=== PATIENT | male | born 2000 | race Caucasian/White ===

== ENCOUNTER 2021-03-07 15:22 | Emergency (ER) | payer SELFPAY ==
[2021-03-07 15:40] VITALS: BP 141/75; PULSE 91; RESP 18; TEMP 36.8; O2SAT 99
--- NOTE | 2021-03-07 16:13 | ED.GENADULT ---
HPI - General Adult General Chief complaint: Unspecified Stated complaint: not able to sleep Time Seen by Provider: 03/07/21 16:13 Source: patient and RN notes reviewed Mode of arrival: ambulatory Limitations: no limitations History of Present Illness HPI narrative: 20-year-old male presents with complaints of trouble sleeping for the past 4 days. Guero reports working nights at [employer] and drinking coffee, off for several days now has increasing trouble sleeping over the past 72 hours. Muscle relaxer and melatonin without relief. History of Bipolar-Depression without medication and current treatment. Denies stress. Denies SI/HI, auditory or visual hallucination. Denies obstructive sleep apnea or restless leg syndrome. Denies dyspnea or chest pain. Denies abdominal pain, nausea, and vomiting. Tolerating po intake well. Remains active. The patient reports he have not been diagnosed with COVID-19. The patient reports he is not waiting for the results of a COVID-19 lab test. The patient reports he do not have fever, chills, weakness, or fatigue. The patient reports he do not have a new or worsening cough. The patient reports he do not have any rhinorrhea, congestion, loss of taste or smell, sore throat, and diarrhea. Denies recent traveling. Denies concerns for COVID-19 or exposures been home with limited outdoor exposure except for essential household needs, work, and return home. At this time, patient is not suspected of having COVID-19. Some parts of this dictation were generated by voice recognition software and may contain typographical and/or grammatical inaccuracies. Related Data Allergies Allergy/AdvReac Type Severity Reaction Status Date / Time No Known Allergies Allergy Verified 03/07/21 15:38 Review of Systems Review of Systems: Narrative: CONSTITUTIONAL: Denies fever, chills, sweats. EYES: Denies visual changes, redness, discharge. ENT: Denies rhinorrhea, congestion, sore throat, otalgia. CARDIOVASCULAR: Denies chest pain, palpitations, edema. RESPIRATORY: Denies dyspnea, wheezing, cough. GASTROINTESTINAL: Denies abdominal pain, nausea, vomiting, diarrhea. SKIN: Denies rash or itching. MUSCULOSKELETAL: Denies acute back pain, joint pain, or myalgia. NEUROLOGIC: Denies numbness or focal weakness. PSYCHIATRIC: Denies SI/HI, auditory or visual hallucination, anxiety, depression, feelings of guilt, worthlessness, or hopelessness. Complaints of trouble sleeping All other systems reviewed are negative, except as documented in HPI and below. PMFSH Past Medical History Medical History (Updated 03/08/21 @ 00:00 by Saskia Isbell) Bipolar disorder Depression Pilonidal cyst Surgical History Surgical History (Updated 03/07/21 @ 16:31 by KARSTEN Arriaza) History of removal of cyst From tailbone Family History Family History (Updated 03/07/21 @ 16:32 by KARSTEN Arriaza) Father Unknown family medical history Mother Hypertension Social History Social History (Updated 03/07/21 @ 16:32 by KARSTEN Arriaza) Smoking status: Never smoker Tobacco type: cigarettes Second hand tobacco smoke exposure: Yes (Family members) Alcohol intake: never Substance use: never Living arrangements: with family Occupation/Education: occupation Gender identity (if verbalized by the patient): Male Comments Lucien time of signature, agree with nurse past medical, surgical, social, and family history. There is relevant patient's history pertinent to the presenting complaint, no relevant family history pertinent to the presenting complaint. Exam Narrative: Exam Narrative: GENERAL: This is a well-nourished, well-developed patient, in no apparent distress. Talks in full sentences and ambulates with steady gait without dyspnea. HEAD: Normocephalic, atraumatic. EYES: PERRL. Sclera clear/white. Vision is grossly intact. THROAT: Mucous membranes moist, posterior pharynx clear. NECK: Nec
== END 2021-03-07 16:40 | disposition home or self-care (01) ==
PROVIDERS: Emergency Provider Nurse Practitioner Family
DX: G47.00 Insomnia, unspecified (principal); F32.9 Major depressive disorder, single episode, unspecified
CPT/HCPCS: 99203; G0463

== ENCOUNTER 2021-10-11 10:44 | Emergency (ER) | payer SELFPAY ==
--- NOTE | 2021-10-11 10:49 | ED.FEMALEGU ---
HPI - Female Genitourinary General Chief complaint: Urogenital-Male Stated complaint: UTI Time Seen by Provider: 10/11/21 10:49 Source: patient and RN notes reviewed History of Present Illness HPI Narrative: Patient is a 20-year-old male who presents the urgent care with complaints of a possible UTI. Patient states that for the last 3 days he has had burning with urination, irritation to the penis, and green to yellow penile discharge. Patient reports of urgency and pressure. Patient's girlfriend is at the bedside and he verbalizes consent to speak to him and assess him with girlfriend present. Patient states that they are newly sexually active. Denies of any known exposure to an STD. Patient has not taken anything [id number] for his symptoms. No other acute complaints. No acute distress noted. Patient aware of the plan of care. Some parts of this dictation were generated by voice recognition software and may contain typographical and/or grammatical inaccuracies. Related Data Home Medications Medication Instructions Recorded Confirmed No Home Medications 10/11/21 10/11/21 Allergies Allergy/AdvReac Type Severity Reaction Status Date / Time No Known Allergies Allergy Verified 10/11/21 11:10 Review of Systems Review of Systems: CONSTITUTIONAL: Denies fever, chills, or sweats. EYES: Denies visual changes, redness, or discharge. ENT: Denies rhinorrhea, congestion, sore throat, or otalgia. CARDIOVASCULAR: Denies chest pain, palpitations, or edema. RESPIRATORY: Denies cough or dyspnea. GASTROINTESTINAL: Denies abdominal pain, nausea, vomiting, or diarrhea. GENITOURINARY: Reports of dysuria and green to yellow penile drainage SKIN: Denies rash or itching. MUSCULOSKELETAL: Denies back pain, joint pain, or myalgia. NEUROLOGIC: Denies headache, numbness, or weakness. All other systems reviewed are negative, except as documented in HPI. [facility] Past Medical History Medical History (Updated 10/11/21 @ 11:36 by KARSTEN Justin) Bipolar disorder Depression Pilonidal cyst Surgical History Surgical History (Updated 03/07/21 @ 16:31 by KARSTEN Arriaza) History of removal of cyst From tailbone Family History Family History (Updated 03/07/21 @ 16:32 by KARSTEN Arriaza) Father Unknown family medical history Mother Hypertension Social History Social History (Updated 03/07/21 @ 16:32 by KARSTEN Arriaza) Smoking status: Never smoker Tobacco type: cigarettes Second hand tobacco smoke exposure: Yes (Family members) Alcohol intake: never Substance use: never Gender identity (if verbalized by the patient): Male Comments At the time of my signature, I reviewed and agree with the nursing past medical, surgical, social, and family history. There is no relevant family history pertinent to the patient complaint. Exam Narrative: GENERAL: This is a well-nourished, well-developed patient, in no apparent distress. HEAD: normocephalic, atraumatic. EYES: PERRL. Sclera clear/white. Vision is grossly intact. EARS: External ears normal NOSE: External nose normal with no obvious nasal discharge, nares without redness, no rhinorrhea. THROAT: Mucous membranes moist NECK: Neck supple CARDIOVASCULAR: Regular rate and rhythm without murmurs, gallops, or rubs. RESPIRATORY: Clear to auscultation. Breath sounds equal bilaterally. No wheezes, rales, or rhonchi. GASTROINTESTINAL: Abdomen soft, non-tender, nondistended. Bowel sounds are active. SKIN: warm, intact with no suspicious lesions or rash, good texture and turgor. NEURO: awake, alert, and oriented to person, place and time. There were no obvious focal neurologic abnormalities. EXTREMITIES: No clubbing, cyanosis, or edema. BACK: Negative CVA tenderness Course Vital Signs Vital signs: Vital Signs Temperature 97.8 F 10/11/21 10:55 Pulse Rate 98 10/11/21 10:55 Respiratory Rate 18 10/11/21 10:55 Blood Pressure 1
[2021-10-11 10:55] VITALS: BP 141/66; PULSE 98; RESP 18; TEMP 36.6; O2SAT 99
== END 2021-10-11 11:40 | disposition home or self-care (01) ==
PROVIDERS: Emergency Provider Nurse Practitioner Family
DX: R36.9 Urethral discharge, unspecified (principal)
CPT/HCPCS: 81003; 99212; G0463

== ENCOUNTER 2023-05-19 18:35 | Emergency (ER) | payer SELFPAY ==
[2023-05-19 18:51] VITALS: BP 124/75; PULSE 87; RESP 16; TEMP 36.8; O2SAT 100
--- NOTE | 2023-05-19 18:59 | ED.URI ---
HPI - URI/Sore Throat General Chief Complaint: Upper Respiratory Infection Stated Complaint: Sore Throat Source: patient and RN notes reviewed History of Present Illness HPI Narrative: 22 yo M presents to urgent care with complaints of a sore throat x 2-3 days. Pt denies any fevers, chills, ear pain, vomiting, chest pain, or SOB. PT has taken Nyquil and an OTC analgesic at home. Related Data Home Medications Medication Instructions Recorded Confirmed No Home Medications 10/11/21 05/19/23 Allergies Allergy/AdvReac Type Severity Reaction Status Date / Time No Known Allergies Allergy Verified 05/19/23 18:55 Review of Systems Review of Systems: Pertinent positives and pertinent negatives per HPI. [facility] Past Medical History Medical History (Updated 05/19/23 @ 19:02 by Irena Lord APRN) Bipolar disorder Depression Pilonidal cyst Surgical History Surgical History (Updated 05/10/22 @ 13:58 by Jason Harrison) History of removal of cyst From tailbone Family History Family History (System 05/10/22 @ 13:58 by Jason Harrison) Father Unknown family medical history Mother Hypertension Social History Social History (System 05/10/22 @ 13:58 by Jason Harrison) Smoking status: Never smoker Tobacco type: cigarettes Second hand tobacco smoke exposure: Yes (Family members) Alcohol intake: never Substance use: never Living arrangements: with family Occupation/Education: occupation Gender identity (if verbalized by the patient): Male Comments At the time of my signature, I reviewed and agree with the nursing past medical, surgical, social, and family history. There is no relevant family history pertinent to the patient complaint. Exam Narrative: GENERAL: This is a well-nourished, well-developed patient, in no apparent distress. HEAD: normocephalic, atraumatic. EYES: Sclera clear/white. Vision is grossly intact. EARS: External ears normal, auditory canals clear and without drainage, TMs normal without perforation. Hearing grossly intact. NOSE: External nose normal with no obvious nasal discharge, nares without redness, no rhinorrhea. THROAT: Mucous membranes moist, posterior pharynx erythemic NECK: Neck supple, non-tender without lymphadenopathy, masses or thyromegaly. CARDIOVASCULAR: Regular rate RESPIRATORY: No respiratory distress SKIN: warm, intact with no suspicious lesions or rash, good texture and turgor. NEURO: awake, alert, and oriented to person, place and time. There were no obvious focal neurologic abnormalities. Course Course Level of Care: Express Care Visit Vital Signs Vital signs: Vital Signs Temperature 98.2 F 05/19/23 18:51 Pulse Rate 87 05/19/23 18:51 Respiratory Rate 16 05/19/23 18:51 Blood Pressure 124/75 05/19/23 18:51 Pulse Oximetry 100 05/19/23 18:51 Oxygen Delivery Room Air 05/19/23 18:51 Temperature 98.2 F 05/19/23 18:51 Pulse Rate 87 05/19/23 18:51 Respiratory Rate 16 05/19/23 18:51 Blood Pressure 124/75 05/19/23 18:51 Pulse Oximetry 100 05/19/23 18:51 Oxygen Delivery Room Air 05/19/23 18:51 Reviewed MDM - URI/Sore Throat MDM Narrative Medical decision making narrative: Rapid strep is negative in the office; however we will send to the lab for confirmation; there is a small percentage chance that it can come back positive; if it is, we will call you in 2-3days; and your prescription will be call in to your pharmacy. However, there is NO indication for antibiotic at this time. -Increase your fluids and Vitamin C. -Oral rinses such as: Salt water gargles and/or may use topical anesthetic (eg. Chloraseptic spray) or lozenges to relieve dryness or throat pain. -Take tylenol and ibuprofen as needed for pain and fever as directed. -Frequent hand washing or hand visual specialist is one of the best ways to prevent spread of infection. -Follow up with primary care provider in 2-3 days if condition is not improvi
== END 2023-05-19 19:03 | disposition home or self-care (01) ==
PROVIDERS: Emergency Provider Nurse Practitioner Family
DX: J02.9 Acute pharyngitis, unspecified (principal)
CPT/HCPCS: 87081; 87880; 99213; G0463

== ENCOUNTER 2023-06-21 18:37 | Emergency (ER) | payer SELFPAY ==
[2023-06-21 18:42] VITALS: BP 142/71; PULSE 73; RESP 16; TEMP 36.2; O2SAT 100
[2023-06-21 19:00] VITALS: BP 130/86
--- NOTE | 2023-06-21 19:09 | ED.HA ---
HPI - Headache General Chief Complaint: Headache Stated Complaint: poss high bp Source: patient and RN notes reviewed Mode of arrival: ambulatory Limitations: no limitations History of Present Illness HPI Narrative: Patient is a 22-year-old male who presents to the [facility] with complaints of headache for the past week. Patient states that it is becoming more persistent constant. He describes the pain as aching. he denies numbness, weakness, difficulty walking, difficulty talking. He is neurologically intact with no obvious neurological deficits. He denies recent illness, congestion, sore throat, ear pain. Denies recent fevers or chills. Related Data Allergies Allergy/AdvReac Type Severity Reaction Status Date / Time No Known Allergies Allergy Verified 06/21/23 19:02 Review of Systems Review of Systems: CONSTITUTIONAL: Denies fever, chills, or sweats. EYES: Denies visual changes, redness, or discharge. ENT: Denies otalgia and sore throat CARDIOVASCULAR: Denies chest pain, palpitations, or edema. RESPIRATORY: Denies cough or dyspnea. GASTROINTESTINAL: Denies abdominal pain, nausea, vomiting, or diarrhea. GENITOURINARY: Denies dysuria or hematuria. SKIN: Denies rash or itching. MUSCULOSKELETAL: Denies back pain, joint pain, or myalgia. NEUROLOGIC: Reports headache, but denies numbness or weakness. Pertinent positives per HPI. [facility] Past Medical History Medical History Bipolar disorder Depression Pilonidal cyst Surgical History Surgical History History of removal of cyst From tailbone Family History Family History Father Unknown family medical history Mother Hypertension Social History Social History Smoking status: Never smoker Tobacco type: cigarettes Second hand tobacco smoke exposure: Yes (Family members) Alcohol intake: never Substance use: never Living arrangements: with family Occupation/Education: occupation Gender identity (if verbalized by the patient): Male Comments At the time of my signature, I reviewed and agree with the nursing past medical, surgical, social, and family history. There is no relevant family history pertinent to the patient complaint. Exam Narrative: GENERAL: This is a well-nourished, well-developed patient, in no apparent distress. HEAD: normocephalic, atraumatic. EYES: PERRL. Sclera clear/white. Vision is grossly intact. EARS: External ears normal, auditory canals clear and without drainage, TMs normal without perforation. Hearing grossly intact. NOSE: External nose normal with no obvious nasal discharge, nares without redness, no rhinorrhea. THROAT: Mucous membranes moist, posterior pharynx clear. NECK: Neck supple, non-tender without lymphadenopathy, masses or thyromegaly. CARDIOVASCULAR: Regular rate and rhythm without murmurs, gallops, or rubs. RESPIRATORY: Clear to auscultation. Breath sounds equal bilaterally. No wheezes, rales, or rhonchi. GASTROINTESTINAL: Abdomen soft, non-tender, nondistended. Bowel sounds are active. No hepato-splenomegaly, or palpable masses. No guarding. SKIN: warm, intact with no suspicious lesions or rash, good texture and turgor. NEURO: awake, alert, and oriented to person, place and time. There were no obvious focal neurologic abnormalities. EXTREMITIES: No clubbing, cyanosis, or edema. No joint tenderness, effusion, or edema noted. BACK: Nontender without deformity or crepitance. No flank tenderness. Course Course Level of Care: Express Care Visit Vital Signs Vital signs: Vital Signs Temperature 97.1 F L 06/21/23 18:42 Pulse Rate 73 06/21/23 18:42 Respiratory Rate 16 06/21/23 18:42 Blood Pressure 142/71 H 06/21/23 18:42 Pulse Oximetry 100 06/21/23 18:42 Oxygen De
[2023-06-21] MEDS: KETOROLAC (*BKC) 60 MG/2 ML VIAL IM (19:14)
[2023-06-21 19:30] VITALS: BP 128/80
== END 2023-06-21 19:30 | disposition home or self-care (01) ==
PROVIDERS: Emergency Provider Nurse Practitioner
DX: R51.9 Headache, unspecified (principal)
CPT/HCPCS: 96372; 99213; G0463; J1885